=== PATIENT | male | born 1955 | race Caucasian/White ===

== ENCOUNTER 2022-03-09 17:40 | Emergency (ER) | payer BC, OTHER ==
[2022-03-09 18:03] VITALS: BP 149/76; PULSE 68; RESP 16; TEMP 98.8; BMI 26.6
== END 2022-03-09 18:55 | disposition home or self-care (01) ==
LOC: FER 17:40
DX: S90.121A Contusion of right lesser toe(s) without damage to nail, initial encounter (principal); Y99.9 Unspecified external cause status
CPT/HCPCS: 73660-TC-FY; 99283-25